=== PATIENT | female | born 1980 | race Caucasian/White ===

== ENCOUNTER 2020-04-08 01:50 | Emergency (ER) | payer SELFPAY ==
[~2020-04-08] VITALS: Ht 175.3 cm; Wt 90.7 kg
[~2020-04-08 01:50] MED LIST: AZO; Amoxicillin500 MG PO; CYCL10 PO; IBUP400 PO; IBUP600 PO; IBUP800 PO; MEDR10 PO; MEDR5 PO; NITR100CA PO; PENVK500 PO; PYRI100 PO; Sprintec1 EACH PO; Ultram50 MG PO; Zofran8 MG PO
[2020-04-08] MEDS ORDERED: ZOLOFT50 MG PO (02:13)
[2020-04-08] MEDS ORDERED: AMOCLA875 PO (04:03)
== END 2020-04-08 04:35 | disposition home or self-care (01) ==
LOC: ER 01:50
DX: K02.9 Dental caries, unspecified (principal); K08.89 Other specified disorders of teeth and supporting structures; F17.290 Nicotine dependence, other tobacco product, uncomplicated; Z88.5 Allergy status to narcotic agent; Z79.899 Other long term (current) drug therapy
CPT/HCPCS: 96372; 99282-25; J1885